=== PATIENT | female | born 2000 | race Caucasian/White ===

== ENCOUNTER 2018-04-06 20:52 | Emergency (ER) | payer SELFPAY ==
[~2018-04-06] VITALS: Ht 172.7 cm; Wt 95.5 kg
[2018-04-06 21:05] VITALS: Ht 172.7 cm; Wt 95.5 kg
[2018-04-06] MEDS ORDERED: BACTRIM DS TABL1 TAB PO (22:33)
[2018-04-06] MEDS ORDERED: NORCO 7.5/325 T1 TA1 PO (22:33)
[2018-04-06 23:25] VITALS: BP 150/91
== END 2018-04-06 23:25 | disposition home or self-care (01) ==
LOC: D.ER 20:52
DX: L02.411 Cutaneous abscess of right axilla (principal); F17.200 Nicotine dependence, unspecified, uncomplicated

== ENCOUNTER 2018-04-08 19:28 | Emergency (ER) | payer SELFPAY ==
[~2018-04-08] VITALS: Ht 172.7 cm; Wt 90.9 kg
[~2018-04-08 19:28] MED LIST: BACTRIM DS TABL1 TAB PO; NORCO 7.5/325 T1 TA1 PO
[2018-04-08 19:43] VITALS: Ht 172.7 cm; Wt 90.9 kg
[2018-04-08] MEDS ORDERED: CLEOCIN HCL300 MG PO (21:46)
[2018-04-08] MEDS ORDERED: HYDROCODON-ACE1 EAC7 PO (21:46)
[2018-04-08 22:44] VITALS: BP 115/62
== END 2018-04-08 22:45 | disposition home or self-care (01) ==
LOC: D.ER 19:28
DX: L03.313 Cellulitis of chest wall (principal); F17.200 Nicotine dependence, unspecified, uncomplicated